=== PATIENT | male | born 1980 | race Caucasian/White ===

== ENCOUNTER 2016-11-25 10:07 | Emergency (ER) | payer OTHER, MEDICAID ==
[~2016-11-25] VITALS: Ht 172.7 cm; Wt 70.0 kg
[2016-11-25 10:51] VITALS: BP 149/102
== END 2016-11-25 12:16 | disposition home or self-care (01) ==
LOC: ER 10:25
DX: F41.9 Anxiety disorder, unspecified (principal); E78.00 Pure hypercholesterolemia, unspecified; F43.0 Acute stress reaction
CPT/HCPCS: 99283